=== PATIENT | male | born 1935 ===

== ENCOUNTER 2023-08-05 19:20 | Emergency (ER) | payer MEDICARE ==
[~2023-08-05] VITALS: Ht 180.3 cm; Wt 86.2 kg
[2023-08-05 19:38] LABS: BASOPHILS # (AUTO) 0.03 K/uL (0.00-0.20); BASOPHILS % (AUTO) 0.4 % (0.0-5.0); EOSINOPHILS # (AUTO) 0.32 K/uL (0.00-0.70); EOSINOPHILS % (AUTO) 3.9 % (0.0-8.0); HEMATOCRIT 46.5 % (42-54); IMMATURE GRANULOCYTE ABSOLUTE 0.03 K/uL (0-1); LYMPHOCYTES # (AUTO) 0.9 K/uL (1.0-4.8); LYMPHOCYTES % (AUTO) 11.3 % (21.0-51.0); MEAN CORPUSCULAR HEMOGLOBIN 30.8 pg (27.0-33.0); MEAN CORPUSCULAR HGB CONC 33.3 g/dL (32.0-36.0); MEAN CORPUSCULAR VOLUME 92.4 fL (79-99); MONOCYTES # (AUTO) 0.5 K/uL (0.1-1.0); NEUTROPHILS # (AUTO) 6.5 K/uL (1.8-7.7); PLATELET COUNT (AUTO) 145 K/uL (130-400); RED BLOOD CELL COUNT(AUTO) 5.03 MIL/uL (4.50-6.20); RED CELL DISTRIBUTION WIDTH 14.3 % (11.0-15.5); WHITE BLOOD COUNT (AUTO) 8.3 K/uL (4.8-10.8)
[2023-08-05 19:52] LABS: INR 1.26 (0.85-1.15); PROTHROMBIN TIME 14.6 SEC (9.6-11.6)
[2023-08-05 19:54] LABS: PARTIAL THROMBOPLASTIN TIME 38.1 SEC (26.3-35.5)
[2023-08-05 20:02] LABS: POTASSIUM 4.3 mmol/L (3.5-5.1)
[2023-08-05 20:06] LABS: ALBUMIN 3.5 g/dL (3.5-5.0); BILIRUBIN,TOTAL 2.5 mg/dL (0.2-1.0); TOTAL PROTEIN, SERUM 6.6 g/dL (6.0-8.3)
[2023-08-05 20:29] LABS: APPEARANCE,URINE CLEAR (CLEAR); BILIRUBIN,URINE NEGATIVE (NEGATIVE); COLOR,URINE YELLOW (YELLOW); GLUCOSE, URINE (UA) NEGATIVE (NEGATIVE); KETONES,URINE NEGATIVE (NEGATIVE); LEUKOCYTE ESTERASE ,URINE NEGATIVE Leu/uL (NEGATIVE); NITRATE,URINE NEGATIVE (NEGATIVE); OCCULT BLOOD,URINE NEGATIVE (NEGATIVE); PH,URINE 5.5 (5.0-8.0); PROTEIN,URINE NEGATIVE (NEGATIVE)
[2023-08-05 20:31] LABS: ADD UA MICROSCOPIC YES
[2023-08-05 20:32] LABS: MUCUS,URINE RARE LPF (None Seen); SQUAMOUS EPITHELIAL CELL,UR RARE /HPF (0-2); WBC,URINE 0-1 /HPF (0-1)
[2023-08-05 22:59] VITALS: BP 114/63; PULSE 69; RESP 16; O2SAT 97
[2023-08-05] MEDS: LACTATED RINGERS 1000ML 1,000 ML IV ONE (23:04)
[2023-08-05 23:17] LABS: MAGNESIUM 2.2 mg/dL (1.80-2.40)
== END 2023-08-06 01:08 | disposition short-term general hospital (02) ==
LOC: EDH 19:20
DX: R41.82 Altered mental status, unspecified (principal); E11.9 Type 2 diabetes mellitus without complications; F03.90 Unspecified dementia, unspecified severity, without behavioral disturbance, psychotic disturbance, mood disturbance, and anxiety; I10 Essential (primary) hypertension; Z95.0 Presence of cardiac pacemaker
CPT/HCPCS: 99285; 70450; 96360; 76705; 71045; 83735; 84484; 80053; 83690; 85025; 85610; 85730; 81001; 36415; 72125; 93005; J7120

== ENCOUNTER 2023-09-24 13:43 | Emergency (ER) | payer MEDICARE ==
[~2023-09-24] VITALS: Ht 175.3 cm; Wt 86.2 kg
[2023-09-24 16:29] LABS: BASOPHILS # (AUTO) 0.07 K/uL (0.00-0.20); BASOPHILS % (AUTO) 0.9 % (0.0-5.0); EOSINOPHILS # (AUTO) 0.16 K/uL (0.00-0.70); HEMATOCRIT 44.5 % (42-54); IMMATURE GRANULOCYTE ABSOLUTE 0.15 K/uL (0-1); LYMPHOCYTES # (AUTO) 1.2 K/uL (1.0-4.8); LYMPHOCYTES % (AUTO) 14.6 % (21.0-51.0); MEAN CORPUSCULAR HEMOGLOBIN 31.3 pg (27.0-33.0); MEAN CORPUSCULAR HGB CONC 34.8 g/dL (32.0-36.0); MEAN CORPUSCULAR VOLUME 89.7 fL (79-99); MONOCYTES # (AUTO) 0.5 K/uL (0.1-1.0); MONOCYTES % (AUTO) 6.7 % (3.0-13.0); NEUTROPHILS # (AUTO) 5.9 K/uL (1.8-7.7); NEUTROPHILS % (AUTO) 73.9 % (40.0-77.0); PLATELET COUNT (AUTO) 171 K/uL (130-400); RED BLOOD CELL COUNT(AUTO) 4.96 MIL/uL (4.50-6.20)
[2023-09-24 16:50] LABS: ALBUMIN 3.3 g/dL (3.5-5.0); CREATININE 1.1 mg/dL (0.5-1.3); POTASSIUM 4.6 mmol/L (3.5-5.1); TOTAL PROTEIN, SERUM 6.6 g/dL (6.0-8.3)
[2023-09-24] MEDS: 0.9% NACL 500ML IV.SOLN 500 ML IV ONE ×2 (17:17→18:00)
[2023-09-24 17:46] LABS: ABG BASE EXCESS -2.7 mmol/L (-2.0-3.0); ABG HCO3 21.8 mmol/L (21.0-28.0); ABG OXYGEN SATURATION 95.6 % (95.0-99.0); ABG PCO2 37 mmHg (35-48); ABG PH 7.386 (7.35-7.450); DEVICE COMMENT RB; PO2, ARTERIAL BG 79.2 mmHg (83.0-108.0); VENT MODE, BG RA (ROOM AIR)
[2023-09-24] MEDS: INSULIN HUMULIN R 100 UNIT/ML 3ML IV ONE (17:50)
[2023-09-24 20:44] VITALS: BP 147/80; PULSE 82; RESP 20; O2SAT 98
== END 2023-09-24 20:53 | disposition home or self-care (01) ==
LOC: EDH 13:43
DX: E11.65 Type 2 diabetes mellitus with hyperglycemia (principal); E78.00 Pure hypercholesterolemia, unspecified; F03.90 Unspecified dementia, unspecified severity, without behavioral disturbance, psychotic disturbance, mood disturbance, and anxiety; I10 Essential (primary) hypertension
CPT/HCPCS: 99285; 96374; 80053; 82803; 85025; 82948 ×2; 82010; 36415; 36600; J1815

== ENCOUNTER 2023-11-25 21:43 | Emergency (ER) | payer MEDICARE ==
[~2023-11-25] VITALS: Ht 182.9 cm; Wt 104.3 kg
[2023-11-25 21:52] VITALS: BP 158/93; PULSE 63; RESP 18; O2SAT 98
== END 2023-11-26 03:35 ==
LOC: EDH 21:43
DX: S00.81XA Abrasion of other part of head, initial encounter (principal); M54.2 Cervicalgia; E11.9 Type 2 diabetes mellitus without complications; F01.50 Vascular dementia, unspecified severity, without behavioral disturbance, psychotic disturbance, mood disturbance, and anxiety; I10 Essential (primary) hypertension; I25.10 Atherosclerotic heart disease of native coronary artery without angina pectoris; I48.91 Unspecified atrial fibrillation; Z98.890 Other specified postprocedural states; W18.39XA Other fall on same level, initial encounter; Y93.89 Activity, other specified; Y92.89 Other specified places as the place of occurrence of the external cause; Y99.8 Other external cause status
CPT/HCPCS: 70450; 72125